=== PATIENT | female | born 1950 | race Caucasian/White ===

== ENCOUNTER 2020-05-31 09:50 | Outpatient (REF) | payer MEDICARE, SELFPAY ==
[2020-05-31 21:11] LABS: Abs Immature Grans 0.01 10^3/uL (0.0-0.06); Absolute Basophil Count 0.03 10^3/uL (0.0-0.2); Absolute Eosinophil Count 0.12 10^3/uL (0.0-0.7); Absolute Lymphocyte Count 0.98 10^3/uL (1.2-3.4); Absolute Monocyte Count 0.45 10^3/uL (0.1-0.8); Basophils % 0.6; Eosinophils % 2.3; HCT 39.9 % (36.0-46.0); HGB 13.6 g/dL (11.2-15.7); Immature Grans % 0.2; Lymphocytes % 18.9; MCH 33.6 pg (27.0-33.0); MCHC 34.1 % (32.0-36.0); MCV 98.5 fL (80-95); MPV 12.8 fL (8.0-11.0); Monocytes % 8.7; Neutrophils % 69.3; Nucleated RBC 0 %; Platelet Count 178 10^3/uL (130-400); RBC 4.05 10^6/uL (3.93-5.22); RDW-SD 43.6 fL; WBC 5.19 10^3/uL (4.4-10.8)
[2020-05-31 21:45] LABS: ALT 26 U/L (14-59); AST 22 U/L (15-37); Albumin 4.1 g/dL (3.4-5.0); Alkaline Phosphatase 130 U/L (46-116); BUN 24 mg/dL (7-18); Bilirubin, Total 0.4 mg/dL (0.2-1.0); CREATININE 0.93 mg/dL (0.55-1.02); Calcium 8.7 mg/dL (8.5-10.1); Chloride 105 mmol/L (98-107); Glucose 104 mg/dL (74-106); Potassium 4.2 mmol/L (3.5-5.1); Sodium 140 mmol/L (136-145); Total Protein 6.8 g/dL (6.4-8.2)
[2020-05-31 22:28] LABS: C-Reactive Protein 0.08 mg/dL (0.0-0.3)
== END 2020-05-31 10:10 ==
LOC: NCHCN 09:50
PROVIDERS: PCP Internal Medicine; Visit Provider Nurse Practitioner Family
DX: M06.00 Rheumatoid arthritis without rheumatoid factor, unspecified site (principal); Z79.899 Other long term (current) drug therapy
CPT/HCPCS: 80053; 85025; 86140

== ENCOUNTER 2020-09-24 11:49 | Outpatient (REF) | payer MEDICARE, SELFPAY ==
[2020-09-24 13:23] LABS: Absolute Basophil Count 0.03 10^3/uL (0.0-0.2); Absolute Lymphocyte Count 1.24 10^3/uL (1.2-3.4); Absolute Monocyte Count 0.53 10^3/uL (0.1-0.8); Absolute Neutrophil Count 2.75 10^3/uL (1.2-6.7); Basophils % 0.6; Eosinophils % 2.2; HCT 39.3 % (36.0-46.0); HGB 13.6 g/dL (11.2-15.7); Lymphocytes % 26.7; MCH 33.6 pg (27.0-33.0); MCHC 34.6 % (32.0-36.0); MPV 12.3 fL (8.0-11.0); Monocytes % 11.4; Neutrophils % 59.1; Nucleated RBC 0 %; Platelet Count 147 10^3/uL (130-400); RBC 4.05 10^6/uL (3.93-5.22); RDW 11.6 % (11.7-14.6); RDW-SD 41.2 fL; WBC 4.65 10^3/uL (4.4-10.8)
[2020-09-24 13:33] LABS: ALT 25 U/L (14-59); AST 21 U/L (15-37); Albumin 4.1 g/dL (3.4-5.0); Alkaline Phosphatase 143 U/L (46-116); Anion Gap 10.2 mmol/L (3-11); BUN 20 mg/dL (7-18); Bilirubin, Total 0.4 mg/dL (0.2-1.0); C-Reactive Protein 0.07 mg/dL (0.0-0.3); CO2 25.8 mmol/L (21.0-32.0); CREATININE 0.9 mg/dL (0.55-1.02); Calcium 8.9 mg/dL (8.5-10.1); Chloride 106 mmol/L (98-107); Glucose 94 mg/dL (74-106); Potassium 4.2 mmol/L (3.5-5.1); Sodium 142 mmol/L (136-145)
[2020-09-27 17:32] LABS: GGT 21 U/L (5-55)
== END 2020-09-24 11:50 | disposition home or self-care (01) ==
LOC: LBN 11:49
PROVIDERS: PCP Internal Medicine; Visit Provider Internal Medicine Rheumatology
DX: M06.9 Rheumatoid arthritis, unspecified (principal)
CPT/HCPCS: 80053; 82977; 85025; 86140

== ENCOUNTER 2020-12-03 12:23 | Outpatient (REF) | payer MEDICARE, SELFPAY ==
[2020-12-03 18:59] LABS: Calculated LDL 130 mg/dL (<100); Cholesterol 215 mg/dL (<200); HDL Cholesterol 68 mg/dL (40-60); Triglyceride 87 mg/dL (<150)
== END 2020-12-03 12:24 | disposition home or self-care (01) ==
LOC: NCHCN 12:23
PROVIDERS: PCP Internal Medicine; Visit Provider Nurse Practitioner Family
DX: E78.89 Other lipoprotein metabolism disorders (principal); G31.84 Mild cognitive impairment of uncertain or unknown etiology
CPT/HCPCS: 80061

== ENCOUNTER 2021-01-19 17:36 | Outpatient (REF) | payer MEDICARE, SELFPAY ==
[2021-01-19 22:13] LABS: Abs Immature Grans 0.01 10^3/uL (0.0-0.06); Absolute Basophil Count 0.03 10^3/uL (0.0-0.2); Absolute Eosinophil Count 0.11 10^3/uL (0.0-0.7); Absolute Lymphocyte Count 1.21 10^3/uL (1.2-3.4); Absolute Monocyte Count 0.59 10^3/uL (0.1-0.8); Absolute Neutrophil Count 3.67 10^3/uL (1.2-6.7); Basophils % 0.5; HCT 38.7 % (36.0-46.0); Immature Grans % 0.2; Lymphocytes % 21.5; MCH 33.2 pg (27.0-33.0); MCHC 33.6 % (32.0-36.0); MCV 98.7 fL (80-95); MPV 12.7 fL (8.0-11.0); Monocytes % 10.5; Neutrophils % 65.3; Nucleated RBC 0 %; Platelet Count 153 10^3/uL (130-400); RBC 3.92 10^6/uL (3.93-5.22); RDW 11.9 % (11.7-14.6); RDW-SD 42.9 fL; WBC 5.62 10^3/uL (4.4-10.8)
[2021-01-19 22:15] LABS: ALT 29 U/L (14-59); AST 25 U/L (15-37); Alkaline Phosphatase 133 U/L (46-116); Anion Gap 11.1 mmol/L (3-11); BUN 22 mg/dL (7-18); Bilirubin, Total 0.3 mg/dL (0.2-1.0); C-Reactive Protein 0.12 mg/dL (0.0-0.3); CO2 24.9 mmol/L (21.0-32.0); CREATININE 1.3 mg/dL (0.55-1.02); Calcium 8.8 mg/dL (8.5-10.1); Chloride 107 mmol/L (98-107); Estimated GFR 40.73 (mL/min/1.73m2); Glucose 103 mg/dL (74-106); Sodium 143 mmol/L (136-145); Total Protein 6.6 g/dL (6.4-8.2)
== END 2021-01-19 17:37 | disposition home or self-care (01) ==
LOC: NCHCN 17:36
PROVIDERS: PCP Internal Medicine; Visit Provider Internal Medicine Rheumatology
DX: M06.9 Rheumatoid arthritis, unspecified (principal)
CPT/HCPCS: 80053; 85025; 86140

== ENCOUNTER 2021-02-17 12:00 | Outpatient (REF) | payer MEDICARE, SELFPAY ==
[2021-02-17 13:59] LABS: Anion Gap 10.7 mmol/L (3-11); BUN 23 mg/dL (7-18); CO2 24.3 mmol/L (21.0-32.0); CREATININE 0.8 mg/dL (0.55-1.02); Calcium 8.9 mg/dL (8.5-10.1); Chloride 108 mmol/L (98-107); Glucose 95 mg/dL (74-106); Potassium 4.3 mmol/L (3.5-5.1); Sodium 143 mmol/L (136-145)
== END 2021-02-17 12:01 | disposition home or self-care (01) ==
LOC: NCHCN 12:00
PROVIDERS: PCP Internal Medicine; Visit Provider Nurse Practitioner Family
DX: N28.9 Disorder of kidney and ureter, unspecified (principal)
CPT/HCPCS: 80048

== ENCOUNTER 2021-05-24 14:14 | Outpatient (REF) | payer MEDICARE, SELFPAY ==
[2021-05-24 22:01] LABS: Abs Immature Grans 0.01 10^3/uL (0.0-0.06); Absolute Basophil Count 0.05 10^3/uL (0.0-0.2); Absolute Eosinophil Count 0.12 10^3/uL (0.0-0.7); Absolute Lymphocyte Count 1.37 10^3/uL (1.2-3.4); Absolute Monocyte Count 0.43 10^3/uL (0.1-0.8); Absolute Neutrophil Count 4.09 10^3/uL (1.2-6.7); Basophils % 0.8; HCT 38.9 % (36.0-46.0); Immature Grans % 0.2; Lymphocytes % 22.6; MCH 32.7 pg (27.0-33.0); MCHC 33.4 % (32.0-36.0); MCV 97.7 fL (80-95); MPV 12.8 fL (8.0-11.0); Monocytes % 7.1; Neutrophils % 67.3; Nucleated RBC 0 %; Platelet Count 158 10^3/uL (130-400); RBC 3.98 10^6/uL (3.93-5.22); RDW 11.4 % (11.7-14.6); RDW-SD 40.9 fL; WBC 6.07 10^3/uL (4.4-10.8)
[2021-05-24 22:58] LABS: ALT 27 U/L (14-59); AST 23 U/L (15-37); Albumin 4.1 g/dL (3.4-5.0); Alkaline Phosphatase 132 U/L (46-116); Anion Gap 13.1 mmol/L (3-11); BUN 21 mg/dL (7-18); Bilirubin, Total 0.4 mg/dL (0.2-1.0); C-Reactive Protein 0.08 mg/dL (0.0-0.3); CO2 27.9 mmol/L (21.0-32.0); CREATININE 0.9 mg/dL (0.55-1.02); Calcium 8.8 mg/dL (8.5-10.1); Chloride 105 mmol/L (98-107); Glucose 134 mg/dL (74-106); Potassium 3.9 mmol/L (3.5-5.1); Sodium 146 mmol/L (136-145); Total Protein 6.8 g/dL (6.4-8.2)
== END 2021-05-24 14:15 | disposition home or self-care (01) ==
LOC: LBN 14:14
PROVIDERS: PCP Internal Medicine; Visit Provider Internal Medicine Rheumatology
DX: M06.9 Rheumatoid arthritis, unspecified (principal)
CPT/HCPCS: 80053; 85025; 86140

== ENCOUNTER 2022-01-11 14:46 | Outpatient (REF) | payer MEDICARE, SELFPAY ==
[2022-01-11 22:09] LABS: Abs Immature Grans 0.01 10^3/uL (0.0-0.06); Absolute Basophil Count 0.04 10^3/uL (0.0-0.2); Absolute Eosinophil Count 0.13 10^3/uL (0.0-0.7); Absolute Lymphocyte Count 1.44 10^3/uL (1.2-3.4); Absolute Monocyte Count 0.65 10^3/uL (0.1-0.8); Absolute Neutrophil Count 4.66 10^3/uL (1.2-6.7); Basophils % 0.6; Eosinophils % 1.9; HCT 39.9 % (36.0-46.0); HGB 13.8 g/dL (11.2-15.7); Immature Grans % 0.1; Lymphocytes % 20.8; MCH 33.6 pg (27.0-33.0); MCHC 34.6 % (32.0-36.0); MCV 97 fL (80-95); Monocytes % 9.4; Neutrophils % 67.2; Platelet Count 156 10^3/uL (130-400); RBC 4.11 10^6/uL (3.93-5.22); RDW 11.9 % (11.7-14.6); RDW-SD 42.7 fL; WBC 6.93 10^3/uL (4.4-10.8)
[2022-01-11 22:27] LABS: ALT 30 U/L (14-59); AST 25 U/L (15-37); Albumin 4.3 g/dL (3.4-5.0); Alkaline Phosphatase 140 U/L (46-116); Anion Gap 6.4 mmol/L (3-11); BUN 17 mg/dL (7-18); Bilirubin, Total 0.5 mg/dL (0.2-1.0); CO2 28.6 mmol/L (21.0-32.0); CREATININE 0.8 mg/dL (0.55-1.02); Calcium 8.5 mg/dL (8.5-10.1); Calculated LDL 36 mg/dL (<100); Chloride 104 mmol/L (98-107); Cholesterol 147 mg/dL (<200); Glucose 122 mg/dL (74-106); HDL Cholesterol 67 mg/dL (40-60); Potassium 3.9 mmol/L (3.5-5.1); Sodium 139 mmol/L (136-145); Total Protein 6.9 g/dL (6.4-8.2); Triglyceride 220 mg/dL (<150)
== END 2022-01-11 14:47 | disposition home or self-care (01) ==
LOC: NCHCN 14:46
PROVIDERS: PCP Internal Medicine; Visit Provider Nurse Practitioner Family
DX: M06.9 Rheumatoid arthritis, unspecified (principal); Z79.899 Other long term (current) drug therapy
CPT/HCPCS: 80053; 80061; 85025; 86140

== ENCOUNTER 2022-02-07 16:25 | Outpatient (REF) | payer MEDICARE, SELFPAY ==
[2022-02-07 15:39] LABS: ALT 24 U/L (14-59); AST 22 U/L (15-37); Albumin 3.7 g/dL (3.4-5.0); Alkaline Phosphatase 111 U/L (46-116); Anion Gap 8.3 mmol/L (3-11); BUN 23 mg/dL (7-18); Bilirubin, Total 0.4 mg/dL (0.2-1.0); CO2 25.7 mmol/L (21.0-32.0); CREATININE 0.9 mg/dL (0.55-1.02); Calcium 8.6 mg/dL (8.5-10.1); Chloride 109 mmol/L (98-107); Glucose 100 mg/dL (74-106); Potassium 3.8 mmol/L (3.5-5.1); Sodium 143 mmol/L (136-145); TSH (W/Ref FT4) 1.17 uIU/mL (0.36-3.74); Total Protein 6.6 g/dL (6.4-8.2)
== END 2022-02-07 16:26 | disposition home or self-care (01) ==
LOC: NCHCN 16:25
PROVIDERS: PCP Internal Medicine; Visit Provider Nurse Practitioner Family
DX: I49.9 Cardiac arrhythmia, unspecified (principal)
CPT/HCPCS: 80053; 83735; 84443